=== PATIENT | female | born 1990 | race Caucasian/White ===

== ENCOUNTER 2018-06-22 15:36 | Day surgery (SDC) | END 2018-06-22 20:15 | disposition home or self-care (01) ==

== ENCOUNTER 2019-05-30 18:39 | Emergency (ER) | payer OTHER ==
[~2019-05-30] VITALS: Ht 160 cm; Wt 105.5 kg
[~2019-05-30 18:39] MED LIST: ALPR0.25 PO; OMEP20CA9 PO; PANT40TA3 PO
[2019-05-30 18:56] VITALS: Ht 160 cm; Wt 105.5 kg
--- NOTE | 2019-05-30 20:33 | ERD ---
ER Documentation Chief Complaint Chief Complaint Epigastric pain, N/V, X 5 days HPI The patient is a 28-year-old female, presenting to the ER because of epigastric abdominal pain for the last 5 days intermittently, was seen at [facility] twice and discharged. She is hyperventilating and is having a panic attack. She denies fever, chills, neck pain, chest pain, dyspnea, dysuria, diarrhea. She smokes marijuana, denies drinking, denies illicit drug She stated that she possibly fainted from the vomiting and hit her head Past medical history: Gastritis, migraine Past surgical history: Cholecystectomy, , tonsillectomy ROS All systems reviewed and are negative except as per history of present illness. Medications Home Meds Active Scripts Alprazolam* (Xanax*) 0.25 Mg Tablet, 0.25 MG PO TID, #6 TAB Prov:RABIA LOPEZ MD 05/30/19 Pantoprazole* (Protonix*) 40 Mg Tablet.dr, 40 MG PO DAILY, #10 TAB Prov:RABIA LOPEZ MD 05/30/19 Reported Medications Omeprazole* (Prilosec*) 20 Mg Capsule.dr, 20 MG PO DAILY, CAP 07/09/15 Allergies Allergies: Coded Allergies: erythromycin base (Unverified Allergy, Unknown, rash, 07/09/15) PMhx/Soc History of Surgery: Yes (TONSILLECTOMY,CS,CHOLECYSTECTOMY,) Anesthesia Reaction: No Hx Neurological Disorder: No Hx Respiratory Disorders: No Hx Cardiac Disorders: No Hx Psychiatric Problems: No Hx Miscellaneous Medical Probl: No Hx Alcohol Use: No Hx Substance Use: Yes (MARIJUANA 06/21) Hx Tobacco Use: No Physical Exam Vitals Vital Signs Date Temp Pulse Resp B/P (MAP) Pulse Ox O2 O2 Flow FiO2 Time Delivery Rate 05/30/19 98.4 65 20 154/81 100 Nasal 23:42 (105) Cannula 05/30/19 98.4 58 20 150/97 100 Nasal 21:16 (114) Cannula 05/30/19 98.4 74 18 132/58 100 18:56 (82) Physical Exam Const: No acute distress. Head: Atraumatic. Eyes: Normal Conjunctiva. ENT: Normal External Ears, Nose and Mouth. Neck: Full range of motion. No meningismus. Resp: Clear to auscultation bilaterally. Cardio: Regular rate and rhythm. Abd: Soft, non distended, normal bowel sounds, mild epigastric discomfort, no rigidity/rebound/CVA tenderness. Skin: No petechiae or rashes. Back: No midline or flank tenderness. Ext: No cyanosis, or edema. Neur: Awake and alert. No focal deficit Psych: Very anxious Result Diagram: 05/30/19204305/30/192043 Results 24 hrs Laboratory Tests Test 05/30/19 20:44 05/30/19 22:20 05/30/19 22:33 White Blood Count 10.6 10^3/ul Red Blood Count 5.43 10^6/ul Hemoglobin 13.3 g/dl Hematocrit 41.2 % Mean Corpuscular Volume 75.9 fl Mean Corpuscular Hemoglobin 24.5 pg Mean Corpuscular 32.3 g/dl Hemoglobin Concent Red Cell Distribution Width 15.6 % Platelet Count 325 10^3/UL Mean Platelet Volume 10.1 fl Immature Granulocytes % 0.400 % Neutrophils % 65.5 % Lymphocytes % 27.2 % Monocytes % 5.9 % Eosinophils % 0.6 % Basophils % 0.4 % Nucleated Red Blood Cells % 0.0 /100WBC Immature Granulocytes # 0.040 10^3/ul Neutrophils # 6.9 10^3/ul Lymphocytes # 2.9 10^3/ul Monocytes # 0.6 10^3/ul Eosinophils # 0.1 10^3/ul Basophils # 0.0 10^3/ul Nucleated Red Blood Cells # 0.0 10^3/ul Sodium Level 141 mmol/L Potassium Level 3.8 mmol/L Chloride Level 107 mmol/L Carbon Dioxide Level 18 mmol/L Anion Gap 16 Blood Urea Nitrogen 17 mg/dl Creatinine 0.82 mg/dl Est Glomerular Filtrat Rate mL/min > 60 mL/min Glucose Level 93 mg/dl Calcium Level 10.2 mg/dl Total Bilirubin 0.8 mg/dl Direct Bilirubin 0.00 mg/dl Indirect Bilirubin 0.8 mg/dl Aspartate Amino Transf (AST/SGOT) 29 IU/L Alanine 26 IU/L Aminotransferase (ALT/SGPT) Alkaline Phosphatase 87 IU/L Total Protein 8.8 g/dl Albumin 5.0 g/dl Globulin 3.80 g/dl Albumin/Globulin Ratio 1.31 Lipase 137 U/L Beta HCG, Quantitative < 2.4 mIU/ml Ethyl Alcohol Level < 10.0 mg/dl Urine Opiates Screen POSITIVE Urine Barbiturates NEGATIVE Urine Amphetamines Screen NEGATIVE Urine Benzodiazepines Screen POSITIVE Urine Cocaine Screen NEGATIVE Urine Cannabinoids POSITIVE Bedside Urine pH (LAB) 6.0 Bedside Urine Protein (LAB) 2+ Bedside Urine Glucose (UA) Negative Bedside Urine Ketones (LAB) 4+ Bedside Urine Blood Negative Bedside Urine Nitrite (LAB) Negative Bedside Urine Leukocyte Esterase Negative (L Current Medications Medications Dose Sig/Yessi Start Time Status Last (Trade) Ordered Route PRN Stop Time Admin Dose Reason Admin Sodium 1,000 ml @ Q1H ONCE 05/30/19 DC 05/30/19 Chloride 1,000 mls/hr IV 21:00 21:05 05/30/19 21:59 Famotidine 20 mg ONCE ONCE 05/30/19 DC 05/30/19 (Pepcid Iv) IV 21:00 21:05 05/30/19 21:01 Ondansetron 4 mg ONCE STAT 05/30/19 DC 05/30/19 HCl (Zofran IV 20:37 21:05 Inj) 05/30/19 20:40 Morphine 2 mg ONCE STAT 05/30/19 DC 05/30/19 Sulfate IV 20:37 21:05 (morphine) 05/30/19 20:40 40 ml ONCE ONCE 05/30/19 DC Miscellaneous PO 22:00 Medication 05/30/19 22:01 (Gi Cocktail (2)) Lorazepam 0.5 mg ONCE ONCE 05/30/19 DC (Ativan) PO 22:00 05/30/19 22:01 0.5 mg ONCE STAT 05/30/19 DC 05/30/19 Hydromorphone IV 22:09 22:41 HCl 05/30/19 22:11 (Dilaudid) Procedures/[place] [id number] Radiology Main Line: [phone] DIAGNOSTIC IMAGING REPORT Patient: TATIANA GARNETT : 1990 Age: 28 Sex: F MR #: [id number] DOS: 05/30/197 Ordering MD: RABIA LOPEZ MD Location: E/R Room/Bed: PROCEDURE: CT Abdomen and Pelvis without contrast. CLINICAL INDICATION: Abdominal and pelvic pain. TECHNIQUE: CT scan of the abdomen and pelvis without contrast was performed. Coronal and sagittal reformatted images were obtained from the axial source images. Images were reviewed on a high-resolution PACS workstation. Total exam DLP is 1242 mGy-cm. CTDIvol is 21 mGy. One or more of the following dose reduction techniques were used: Automated exposure control, adjustment of the mA and/or kV according to patient size, use of iterative reconstruction technique. DICOM images are available. COMPARISON: None. FINDINGS: The lung bases are normal. There is no pleural effusion. The liver is normal in size and attenuation. There is no focal hepatic lesion. The gallbladder is surgically absent with clips noted in the gallbladder bed. The bile ducts are normal. The spleen is normal in size. There is no focal splenic lesion. Both adrenals are normal with no enlargement or mass. The pancreas is unremarkable with no mass or evidence of pancreatitis. There is no renal mass or hydronephrosis. There is no renal calculus or ureteral calculus. The abdominal aorta is not dilated. There is no retroperitoneal lymphadenopathy or mass. There is no pelvic lymphadenopathy or mass. The bladder and distal ureters are normal. The appendix is well seen and appears normal. The bowel and mesentery are normal. There is no free fluid or free gas. The osseous structures are unremarkable with no fracture or lytic lesion. IMPRESSION: 1. Status post cholecystectomy. 2. No urinary tract calculus or hydronephrosis. 3. Normal appendix. 4. Otherwise unremarkable noncontrast CT scan of the abdomen and pelvis. RPTAT: QQ .Rebel Kendall MD, Date Time Electronically viewed and signed by .Rebel Kendall MD, on 05/30/2019 23:08 .R/ CC: RABIA LOPEZ MD [phone] MEDICAL MAKING DECISION: The patient is a 28-year-old female, presenting with acute anxiety attack, acute epigastric abdominal pain of unclear etiology. She was treated with 1 L normal saline for clinical dehydration, Pepcid IV for epigastric abdominal pain, Zofran 4 mg IV for nausea, morphine 2 mg IV and Dilaudid 0.5 mg IV for epigastric abdominal pain with good response. She d eclined gastrointestinal cocktail and Ativan 0.5 mg for her epigastric abdominal pain and acute anxiety The differential diagnoses considered include but are not limited to sudden abuse, anxiety attack, panic attack, brain concussion, choledocholithiasis, cholangitis, pancreatitis, hepatitis, gastritis, peptic ulcer disease, gastric ulcer, appendicitis, cystitis, diverticulitis, partial small bowel obstruction. Departure Diagnosis: Primary Impression: Epigastric pain Additional Impression: Anxiety attack Condition: Good Comments She was discharged with a 6 tablet of Xanax 0.25 mg, Protonix I discussed the findings with the patient. I advised the patient to follow-up with the primary physician in about 1-2 days for reevaluation and referral to gastroenterology for endoscopy, sooner if needed and return if any concern. Disclaimer: Inadvertent spelling and grammatical errors are likely due to EHR/dictation software use and do not reflect on the overall quality of patient care. Also, please note that the electronic time recorded on this note does not necessarily reflect the actual time of the patient encounter. RABIA LOPEZ MD May 30, 2019 20:33
[2019-05-30] MEDS ORDERED: ONDANSETRON 4 MG INJ IV STA (20:37)
[2019-05-30] MEDS ORDERED: morphine 2 MG INJ IV STA (20:37)
[2019-05-30] MEDS ORDERED: SOD CHLORIDE 0.9% 1,000 ML IV ONE (21:00)
[2019-05-30] MEDS ORDERED: FAMOTIDINE 20 MG INJ IV ONE (21:00)
[2019-05-30] MEDS ORDERED: LIDOCAINE/MYLANTA 40 ML BTL PO ONE (22:00)
[2019-05-30] MEDS ORDERED: LORAZEPAM 0.5 MG TAB PO ONE (22:00)
[2019-05-30] MEDS ORDERED: HYDROmorphONE 0.5 MG/0.5 ML SYG IV STA (22:09)
[2019-05-30 23:42] VITALS: BP 154/81; PULSE 65; RESP 20
== END 2019-05-30 23:43 | disposition home or self-care (01) ==
LOC: E/R 18:39
DX: R10.13 Epigastric pain (principal); F41.9 Anxiety disorder, unspecified; R11.2 Nausea with vomiting, unspecified
CPT/HCPCS: 74176; 80053; 80307; 81003; 83690; 84702; 85025; J1170; J2270; J2405; J7030; Z7610; 36415; 96374; 96375

== ENCOUNTER 2019-09-05 06:03 | Day surgery (SDC) | payer OTHER ==
[~2019-09-05] VITALS: Ht 160 cm; Wt 105.0 kg
[~2019-09-05 06:03] MED LIST changes: +RANI-513 PO; +SUCRALFATE
[2019-09-05 07:34] VITALS: Ht 160 cm; Wt 105.0 kg
[2019-09-05 07:56] VITALS: BP 133/83; PULSE 70; RESP 15
[2019-09-05] MEDS ORDERED: LIDOCAINE 2% (SDV) 5 ML INJ ONE (07:59)
[2019-09-05] MEDS ORDERED: MIDAZOLAM 1 MG/ML 2 ML INJ ONE (07:59)
[2019-09-05] MEDS ORDERED: PROPOFOL 60 ML ONE (07:59)
[2019-09-05] MEDS ORDERED: ONDANSETRON 4 MG INJ IV PRN (08:00)
[2019-09-05 09:58] VITALS: BP 165/75; PULSE 56; RESP 14
== END 2019-09-05 14:21 | disposition home or self-care (01) ==
LOC: GIL 06:03
PROVIDERS: ATTEND Internal Medicine Gastroenterology
DX: R19.7 Diarrhea, unspecified (principal); K29.50 Unspecified chronic gastritis without bleeding; K20.9 Esophagitis, unspecified; E66.01 Morbid (severe) obesity due to excess calories; Z68.41 Body mass index [BMI] 40.0-44.9, adult
CPT/HCPCS: 43239; 45380; 84703; 88305; 88312; 88313; J2250; Z7610